=== PATIENT | female | born 1990 | race Caucasian/White ===

== ENCOUNTER 2019-05-13 16:33 | Inpatient (IN) | payer OTHER, MEDICAID ==
[2019-05-13] MEDS ORDERED: BUTORPHANOL 2 MG INJ IV (19:00)
[2019-05-13] MEDS ORDERED: IBUPROFEN 600 MG TAB PO (19:00)
[2019-05-13] MEDS ORDERED: OXYTOCIN 30 UNITS/LR 500 ML IV (19:00)
[2019-05-13] MEDS ORDERED: MISOPROSTOL 200 MCG TAB PR (19:00)
[2019-05-13] MEDS ORDERED: CARBOPROST 250 MCG INJ IM (19:00)
[2019-05-13] MEDS ORDERED: AMPICILLIN 2 GM/NS (PMX) 100 ML IV (19:00)
[2019-05-13] MEDS ORDERED: METHYLERGONOVINE 0.2 MG INJ IM (19:00)
[2019-05-13 19:17] LABS: ADD MAN DIFF? NO
[2019-05-13] MEDS: LACTATED RINGER'S 1,000 ML IV (19:19)
[2019-05-13 19:24] LABS: WHITE BLOOD COUNT 9.5 10^3/ul (4.8-10.8)
[2019-05-13 19:24] LABS: BASOPHIL # 0.1 10^3/ul (0.0-0.1); BASOPHILS % 0.5 % (0.0-2.0); EOSINOPHILS % 0.4 % (0.0-7.0); HEMATOCRIT 37.2 % (37.0-47.0); HEMOGLOBIN 11.7 g/dl (12.0-16.0); LYMPHOCYTES # 1.6 10^3/ul (0.8-2.9); LYMPHOCYTES % 16.8 % (15.0-51.0); MEAN CORPUSCULAR HGB CONC 31.5 g/dl (32.0-37.0); MEAN CORPUSCULAR VOLUME 85.7 fl (82.0-101.0); MEAN PLATELET VOLUME 11.2 fl (7.4-10.4); MONOCYTE # 0.6 10^3/ul (0.3-0.9); MONOCYTES % 5.8 % (0.0-11.0); NEUTROPHIL # 7.2 10^3/ul (1.6-7.5); PLATELET COUNT 315 10^3/UL (140-415); RED BLOOD COUNT 4.34 10^6/ul (4.20-5.40); RED CELL DISTRIBUTION WIDTH 14.1 % (11.5-14.5)
[2019-05-13] MEDS: CLINDAMYCIN 900 MG/D5W (PMX) 50 ML IVPB (19:48)
[2019-05-13] MEDS ORDERED: LACTATED RINGER'S 1,000 ML IV (20:16)
[2019-05-13 20:17] LABS: HEPATITIS B SURFACE ANTIGEN NEGATIVE (NEGATIVE)
[2019-05-13 20:27] LABS: INR 0.89; PROTIME 12.2 Sec (11.9-14.9)
[2019-05-13] MEDS ORDERED: MINERAL OIL LIGHT 10 ML VIAL TOP (20:30)
[2019-05-13] MEDS ORDERED: AMPICILLIN 1 GM/NS (PMX) 50 ML IV (23:00)
[2019-05-14] MEDS: LACTATED RINGER'S 1,000 ML IV ×2 (03:12→11:34)
[2019-05-14] MEDS: CLINDAMYCIN 900 MG/D5W (PMX) 50 ML IVPB (05:34)
[2019-05-14] MEDS: OXYTOCIN 30 UNITS/LR 500 ML IV ×4 (11:28→17:03)
[2019-05-14] MEDS: LIDOCAINE 1% (MPF) 30 ML INJ INJ (13:56)
[2019-05-14] MEDS ORDERED: NACL 0.9% 3 ML SYG IV (15:30)
[2019-05-14] MEDS ORDERED: SENNA/DOCUSATE NA (8.6MG/50MG) TAB PO (15:30)
[2019-05-14] MEDS ORDERED: METHYLERGONOVINE 0.2 MG INJ IM (15:30)
[2019-05-14] MEDS ORDERED: CARBOPROST 250 MCG INJ IM (15:30)
[2019-05-14] MEDS ORDERED: OXYTOCIN 30 UNITS/LR 500 ML IV (15:30)
[2019-05-14] MEDS ORDERED: ZOLPIDEM 5 MG TAB PO (15:30)
[2019-05-14] MEDS ORDERED: MISOPROSTOL 200 MCG TAB PR (15:30)
[2019-05-14] MEDS ORDERED: OXYCODONE/ASPIRIN (4.88/325) TAB PO (15:30)
[2019-05-14 15:42] LABS: RAPID PLASMA REAGIN NONREACTIVE (NR)
[2019-05-14] MEDS: WITCH HAZEL/GLYCERIN PAD PR (16:59)
[2019-05-14] MEDS: BENZOCAINE 20% 56 ML SPRAY TOP (16:59)
[2019-05-14] MEDS: LANOLIN HPA 1 PKT TOP (16:59)
[2019-05-14] MEDS: IBUPROFEN 600 MG TAB PO (18:00)
[2019-05-14] MEDS: SENNA/DOCUSATE NA (8.6MG/50MG) TAB PO (21:00)
[2019-05-15] MEDS: SENNA/DOCUSATE NA (8.6MG/50MG) TAB PO ×2 (01:01→09:32)
[2019-05-15] MEDS: IBUPROFEN 600 MG TAB PO ×4 (05:48→18:00)
[2019-05-15 08:30] LABS: ADD MAN DIFF? NO
[2019-05-15 08:35] LABS: BASOPHIL # 0.1 10^3/ul (0.0-0.1); BASOPHILS % 0.4 % (0.0-2.0); EOSINOPHILS # 0.2 10^3/ul (0.0-0.5); EOSINOPHILS % 1.5 % (0.0-7.0); HEMATOCRIT 36.6 % (37.0-47.0); HEMOGLOBIN 11.8 g/dl (12.0-16.0); LYMPHOCYTES % 14.8 % (15.0-51.0); MEAN CORPUSCULAR HGB CONC 32.2 g/dl (32.0-37.0); MEAN CORPUSCULAR VOLUME 83.8 fl (82.0-101.0); MEAN PLATELET VOLUME 10.9 fl (7.4-10.4); MONOCYTES % 7.6 % (0.0-11.0); NEUTROPHIL # 10.1 10^3/ul (1.6-7.5); PLATELET COUNT 273 10^3/UL (140-415); RED BLOOD COUNT 4.37 10^6/ul (4.20-5.40); RED CELL DISTRIBUTION WIDTH 14.2 % (11.5-14.5)
[2019-05-15 08:35] LABS: WHITE BLOOD COUNT 13.4 10^3/ul (4.8-10.8)
[2019-05-15] MEDS: LANOLIN HPA 1 PKT TOP (16:19)
[2019-05-15] MEDS: BENZOCAINE 20% 56 ML SPRAY TOP (16:19)
[2019-05-15] MEDS: WITCH HAZEL/GLYCERIN PAD PR (16:19)
[2019-05-15] MEDS: DIPHTH/TET/ACEL PERTUSS (ADULT) 0.5 ML VIAL IM* (18:04)
== END 2019-05-15 18:00 | disposition home or self-care (01) | DRG 807 ==
LOC: OBT 16:33 → L-D 16:34 → PP1 05-14 14:15 → OBT 18:10 → L-D 18:10
PROVIDERS: Obstetrics & Gynecology Gynecology
PROC: 10E0XZZ Delivery of Products of Conception, External Approach (ICD-10-PCS; principal; 2019-05-14)
PROC: 0HQ9XZZ Repair Perineum Skin, External Approach (ICD-10-PCS; 2019-05-14)
DX: O70.0 First degree perineal laceration during delivery (principal); Z37.0 Single live birth; Z3A.37 37 weeks gestation of pregnancy
CPT/HCPCS: 76815; 85025; 85610; 85730; 86592; 86850; 86900; 86901; 87340